=== PATIENT | female | born 1990 | race Caucasian/White ===

== ENCOUNTER 2020-11-25 08:07 | Emergency (ER) | payer MEDICAID, SELFPAY ==
[2020-11-25 08:22] VITALS: BP 117/78; PULSE 89; RESP 18; TEMP 36.9; O2SAT 98; BMI 23.1
--- NOTE | 2020-11-25 08:24 | XR_ITS ---
WS: [id number] Right foot, 3 views, 11/25/2020 Clinical Data: trauma/pain Comparison: None. Findings: There is a fracture of the base of the right third metatarsal with lateral displacement. There may be a fracture of the medial base of the right second metatarsal. The phalanges are intact. The tarsal bones are normal. There is minimal widening of the Lisfranc joint. XR/XR foot RT min 3V* 34790 Impression: 1. Fracture of the base of the right third metatarsal. 2. Probable fracture of base of right second metatarsal with widening of the Li sfranc joint.
--- NOTE | 2020-11-25 08:25 | ED_ITS ---
HPI - Extremity Injury (Lower) General: Chief Complaint: Fall Stated Complaint: R ankle injury post fall Time Seen by Provider: 11/25/20 08:10 Source: patient Mode of arrival: wheelchair Limitations: no limitations History of Present Illness: HPI Narrative: Patient is a 29-year-old female who presents to ED today for evaluation of a right foot injury that she sustained after she was walking down a flight of stairs this morning and missed a few stairs and twisted her foot. She has no other injuries or complaints at this time. Patient states she is not able to bear weight on the extremity secondary to pain. MD complaint: foot injury Onset (ago): hour(s) Injury: Right: foot Place: home Severity: severe Relieving factors: immobilization Exacerbating factors: weight bearing, movement and palpation Context: fall Associated symptoms: Reports inability to bear weight Other symptoms: none Review of Systems Card: Denies: chest pain Resp: Denies: dyspnea Musc: Reports: extremity pain (R foot) and extremity swelling (R foot); Denies: neck pain, back pain, joint pain or joint swelling Neuro: Denies: numbness in extremities or sensory changes Physical Exam Const: COMMON NORMALS: no acute distress, average body habitus, patient oriented x3, no limitations, healthy appearing, alert and well nourished GENERAL APPEARANCE: cooperative HENMT: COMMON NORMALS: normocephalic and atraumatic HEAD & SCALP: normocephalic and atraumatic Neck/C-Spine: COMMON NORMALS: full ROM CERVICAL SPINE: Yes cervical ROM normal and No Cervical spine tenderness Back/Pelvis: COMMON NORMALS: thoracic and lumbar spine normal to inspection and no thoracic nor lumbar tenderness Extremity: GENERAL: Yes normal exam except as noted RIGHT LOWER EXTREMITY: Yes foot & digits (TTP/swelling/ecchymosis noted to dorsal/lateral foot) Right foot and digits: Yes neurovascular exam (normal) and Yes other (maximum tenderness to dorsal mid foot) Neuro: COMMON NORMALS: patient oriented x3, moves all extremities, no focal motor deficits and no sensory deficits noted SENSORIUM/ORIENTATION: Yes alert Course Consultations: Consultation #1: Dr. Marcano-recommends splint/crutches and will see in office early next week with plan for surgery later that week Vital Signs: Vital signs: Vital Signs Temperature 98.5 F 11/25/20 08:22 Pulse Rate 89 11/25/20 08:22 Respiratory Rate 18 11/25/20 09:26 Blood Pressure 117/78 11/25/20 08:22 Pulse Oximetry 98 11/25/20 09:26 MDM - Extremity Injury (Lower) MDM Narrative: Medical decision making narrative: Patient has fairly significant displacement at the base of her third metatarsal. She has a probable fracture to the base of her second metatarsal. Radiologist commented on a possible Lisfranc injury. I spoken to Dr. Marcano who has viewed patient's XRs. Recommend splint and non-weightbearing. Plan will be to see Dr. Marcano in office early next week with plan for surgery later that week. Imaging Data^: XR R foot: My impression: displaced fx base of 3rd metatarsal; AP view shows questionable fx at base of 2nd metatarsal Radiologist's impression: [address] [place] [address] XRay Report Signed Patient: Salud Marcano Unit #: [id number] : [id number] Age/Sex: 29 / F ADM Date: 11/25/20 Loc: ER Room/Bed: Attending Dr: Ordering Provider/Ordering MD: Josseline Brower Date of Service: 11/25/20 Procedure(s): XR foot RT min 3V* 08860 Accession Number(s): [id number] Report Number: [id number] WS: [id number] Right foot, 3 views, 11/25/2020 Clinical Data: trauma/pain Comparison: None. Findings: There is a fracture of the base of the right third metatarsal with lateral displacement. There may be a fracture of the medial base of the right second metatarsal. The phalanges are intact. The tarsal bones are normal. There is minimal widening of the Lisfranc joint. XR/XR foot RT min 3V* 73147 Impression: 1. Fracture of the base of the right third metatarsal. 2. Probable fracture of base of right second metatarsal with widening of the Lisfranc joint. Dictated By: Christy Ruelas MD Signed By: Christy Ruelas MD Signed Date/Time: 11/25/20841 DD/ 9 Discharge Plan Discharge Patient Disposition: Home Clinical Impression: Closed fracture of third metatarsal bone Qualifiers: Encounter type: initial encounter Fracture alignment: displaced Laterality: right Qualified Code(s): S92.331A - Displaced fracture of third metatarsal bone, right foot, initial encounter for closed fracture Closed fracture of 2nd metatarsal Qualifiers: Encounter type: initial encounter Fracture alignment: nondisplaced Laterality: right Qualified Code(s): S92.324A - Nondisplaced fracture of second metatarsal bone, right foot, initial encounter for closed fracture Condition: Stable Prescriptions: New hydrocodone-acetaminophen 5-325 mg tablet 1 tab PO Q4H PRN (Reason: pain) Qty: 20 RF: 0 Discharge Orders: Discharge ED (Routine); Ordered 11/25/20 Ordered By: Josseline Brower Referrals: Reuben Marcano DPM [Physician] - Patient Instructions: Fractures - Metatarsal, Foot Fracture in Adults (ED), Opioid Safety Activity Restrictions/Additional Instructions: [facility] is committed to fighting the nationwide opiate epidemic. We are providing ALL patients with information regarding opiate safety. If you received opiate pain medication during your stay or if you received a prescription for opiate pain medication-please review this handout. If not, you may disregard. Thank you. No weight bearing on extremity. As we discussed we will get you set up to see Dr. Marcano/podiatry early next week with a plan for surgery later that week. Continue to ice and elevate the extremity. Coding Level of Care Code ED Slumber Room Attendant for Reina Fwd Exam Detailed
[2020-11-25 09:26] VITALS: RESP 18; O2SAT 98
[2020-11-25] MEDS: morphine 4 mg/mL SDV 1 mL IM (09:26)
[2020-11-25 11:33] VITALS: PULSE 74; RESP 16; O2SAT 98
--- NOTE | 2020-11-27 22:35 | PC.NURSE ---
called about excessive swelling in her foot. advised to keep elevated and iced. pt states she has been doing that. advised that if she felt like she needed to be seen again she was more than welcome to return to ED.
--- NOTE | 2020-12-02 14:25 | DCPLANNER ---
newspaper library manager had message to schedule a follow up appointment for patient. Referral was made to ortho, patient had an appointment scheduled for 12.01.20 - patient did attend appointment.
== END 2020-11-25 09:49 | disposition home or self-care (01) ==
PROVIDERS: Emergency Provider Physician Assistant
DX: S92.331A Displaced fracture of third metatarsal bone, right foot, initial encounter for closed fracture (principal); S92.324A Nondisplaced fracture of second metatarsal bone, right foot, initial encounter for closed fracture; X50.1XXA Overexertion from prolonged static or awkward postures, initial encounter
CPT/HCPCS: 29515; 73630; 96372; 99283; J2270

== ENCOUNTER → 2020-12-01 16:12 | Outpatient (BNVA) | payer MEDICAID, SELFPAY | PROVIDERS: Referring Provider Physician Assistant; Visit Provider Podiatrist Foot & Ankle Surgery | DX: M79.673 Pain in unspecified foot (principal); S92.331D Displaced fracture of third metatarsal bone, right foot, subsequent encounter for fracture with routine healing; X58.XXXD Exposure to other specified factors, subsequent encounter | CPT/HCPCS: 73630 ==

== ENCOUNTER 2020-12-01 16:35 | Outpatient (CLI) | payer MEDICAID, SELFPAY | END 2020-12-01 16:36 | disposition home or self-care (01) | LOC: SPT 16:37 | PROVIDERS: Visit Provider Podiatrist Foot & Ankle Surgery | DX: Z46.89 Encounter for fitting and adjustment of other specified devices (principal); S93.321D Subluxation of tarsometatarsal joint of right foot, subsequent encounter; X58.XXXD Exposure to other specified factors, subsequent encounter | CPT/HCPCS: 97760; L4361 ==

== ENCOUNTER → 2020-12-05 15:14 | Outpatient (BNVA) | payer MEDICAID, SELFPAY | PROVIDERS: Visit Provider Podiatrist Foot & Ankle Surgery | DX: Z01.818 Encounter for other preprocedural examination (principal); Z20.822 Contact with and (suspected) exposure to COVID-19 | CPT/HCPCS: 87635 ==

== ENCOUNTER 2020-12-08 13:18 | Outpatient (CLI) | payer MEDICAID, SELFPAY ==
--- NOTE | 2020-12-08 13:37 | CT_ITS ---
WS: [id number] Noncontrast CT RIGHT FOOT TECHNIQUE: Noncontrast CT right foot with coronal and sagittal reformatted images. CLINICAL INFORMATION: Lisfranc fracture of right foot COMPARISON: December 01, 2020 DLP: 956.[address] scans at [facility] use at least one of these dose optimization techniques: automated e xposure control; mA and/or kV adjustment per patient size (includes targeted exams where dose is matc hed to clinical indication); or iterative reconstruction. FINDINGS: First metatarsal normal in appearance. Dorsal soft tissue edema. Lisfranc type fracture with comminut ed transverse fractures involving the base of the second and third metatarsals. Lateral displacement of the third metatarsal measuring 6 mm. Slight lateral displacement of the second metatarsal in relat ion to the second cuneiform measuring 2 mm. Fourth and fifth metatarsals are normal in appearance. Small displaced fracture fragments along the lateral base of the third cuneiform and lateral cuboid. Additional tiny avulsions involving the plantar surface first and second cuneiforms. Normal tibiotalar joint. Normal talus. Normal calcaneus. CT/CT foot RT wo con* [id number] IMPRESSION: 1. Lisfranc type fracture deformity with comminuted fractures involving the ba se of the second and third metatarsals with intra-articular extension. 2. Lateral displacement of the third metatarsal measuring 6 mm. Slight lateral displacement of the second metatarsal in relation to the second cuneiforms bob suring 2 mm. 3. Additional small avulsion fractures involving the first second and third cu neiforms and lateral cuboid.
== END 2020-12-08 13:19 | disposition home or self-care (01) ==
PROVIDERS: Visit Provider Podiatrist Foot & Ankle Surgery
DX: S92.811A Other fracture of right foot, initial encounter for closed fracture (principal); S92.221A Displaced fracture of lateral cuneiform of right foot, initial encounter for closed fracture; S92.211A Displaced fracture of cuboid bone of right foot, initial encounter for closed fracture; X58.XXXA Exposure to other specified factors, initial encounter
CPT/HCPCS: 73700

== ENCOUNTER 2020-12-09 07:33 | Day surgery (SDC) | payer MEDICAID, SELFPAY ==
[2020-12-08 16:54] VITALS: BMI 23.1
[2020-12-09] VITALS (10 sets, daily range): BP systolic 116–135; BP diastolic 70–95; PULSE 87–104; RESP 12–20; TEMP 36.3–36.9; O2SAT 94–100
[2020-12-09] MEDS: sodium chloride 0.9% 1,000 ML 30 ML IV (08:21)
--- NOTE | 2020-12-09 08:47 | ANES.PREANE2 ---
Pre-Anesthetic Assessment Pre-Anesthetic Assessment: Height/Weight: Height 1.73 m Weight 68.946 kg Temp Pulse Resp BP Pulse Ox 97.4 F L 87 17 131/70 99 12/09/20 07:45 12/09/20 07:45 12/09/20 07:45 12/09/20 07:45 12/09/20 07:45 Preop Diagnosis: Lisfranc fracture dislocation right foot Proposed Procedure: Operation Date: 12/09/20 09:25 Proposed Procedures p Open reduction internal fixation tarsometatarsal joint dislocation and open reduction internal fixation metatarsal fractures all right foot 03633 76572 S92.314A(Right) - TORY BurrM Was Beta Luisa taken within 24 hours: N/A Was Clonidine taken within 24 hours: N/A Last intake: Intake Last Liquid Date 12/08/20 Last Liquid Time 19:30 Last Solid Date 12/08/20 Last Solid Time 19:00 Social: Social History: Tobacco and No alcohol Exam: Pre-Anes Outpt Exam: alert, oriented x 3 and regular rate & rhythm Airway: Submandibular: WNL Cervical ROM: WNL MP: 2 Dentition: Full Pulmonary: Pulmonary: Asthma and COPD Neuropsych: Neuropsych: Depression and Neuropathy Anesthetic Plan: ASA status: 2 Anesthesia: General Risk of > 500 ml blood loss (7ml/kg in children): No Meds/Allergies Current Medications: Current Medications Generic Name Dose Route Start Last Admin Trade Name Freq PRN Reason Stop Dose Admin Sodium Chloride 1,000 mls @ 30 ml s/hr 12/09/20 07:45 12/09/20 08:21 Sodium Chloride 0.9% IV 12/10/20 07:44 30 mls/hr .Q24H AGA Administration PFSH Anesthesia PFSH: Social History Smoking and tobacco status: current every day smoker Female Reproductive History: Date of last menstrual period: 12/08/20 Data Anesthesia Cardiac Studies: No Data to Display
--- NOTE | 2020-12-09 10:30 | W.PM.OPSUD ---
Surgery/Procedure H&P Update DATE OF PROCEDURE: December 09, 2020 DATE H&P PERFORMED: 12/01/20 H&P UPDATE INFORMATION: I have reviewed H&P completed within last 30 days, I have examined patient prior to procedure, No changes to prior documentation and H&P is in [facility] EMR on date indicated PREOP DIAGNOSIS: Lisfranc fracture dislocation right foot PLANNED PROCEDURE: Operation Date: 12/09/20 09:25 Proposed Procedures p Open reduction internal fixation tarsometatarsal joint dislocation and open reduction internal fixation metatarsal fractures all right foot [id number] S92.314A(Right) - Rueben Marcano DPM
[2020-12-09 10:56] LABS: OR HCG Qualitative Urine Negative (Negative)
[2020-12-09] MEDS: clindamycin 600 MG/50 ML PREMIX 100 MG IV (10:56)
[2020-12-09] MEDS: lidocaine 1% INJ 20 mL XX (11:30)
--- NOTE | 2020-12-09 12:08 | P.PCN_ITS ---
Documented by User: Barry Brush CRNA 12/09/20 12:10 PACU note PACU note: VSS, Good respiratory effort, report to OBJECT ORIENTED PROGRAMMER Post-Anesthesia Exam: awake
[2020-12-09] MEDS: fentaNYL 50 mcg/mL INJ 2mL IVP (12:10)
--- NOTE | 2020-12-09 12:12 | XR_ITS ---
WS: [id number] XR foot RT 2V 66573 REASON FOR EXAM: post op FINDINGS: Complex fractures of the proximal metatarsals of the third through the fourth toes of the right foot along the Lisfranc joint. Subsequent fixation by multiple long pins through the metatarsals terminati ng in the tarsal bones. Fracture fragments, joint alignment, and surgical appliances appear appropriate. XR/XR foot RT 2V 68524 IMPRESSION: Postoperative right foot as above.
--- NOTE | 2020-12-09 12:14 | P.OP_ITS ---
Operative Report Date of procedure: December 09, 2020 Pre-op Diagnosis: Lisfranc fracture dislocation right foot Post-op diagnosis: same Post-op Findings: None Procedure Done: Open reduction internal fixation tarsometatarsal joint dislocation and open reduction internal fixation metatarsal fracture of the third all right foot. CPT codes 94682 and 39062 Implants: 0.062 K wire x7, 4-0 Vicryl, 4-0 nylon Specimens removed/disposition: None Pathology: none sent Surgeon: Reuben Marcano D.P.M. Print Line Supervisor: Aldo Anesthesia: General Estimated blood loss: Less than 5 mL Tourniquet time: 40 minutes IV fluids: None Urine output: None Complications: None Findings: Displaced right third metatarsal, instability/dislocation of the tarsometatarsal joints 1, 2, 3, 4 and 5 right foot. Condition: stable Disposition: PACU Brief History: Patient fell injuring her right foot. CT scan and x-ray shows fractures of the second and third metatarsals of the right foot. She has an avulsion fracture at the first metatarsal medial cuneiform base. Recommended open reduction internal fixation. Plan a will be K wire fixation plan be will be plates and screws. Patient is agreeable wishes to proceed. Has been n.p.o. since midnight, and fluid consent signed, Covid screening negative, no guarantees written, expressed or implied. Patient wishes to proceed. Procedure: Under mild sedation the patient was brought to the operativeRoom and placed on the operative table in supine position. A timeout was performed. Anesthesia was then administered by the anesthesia service. Local anesthesia injected by myself consisting of one-to-one mixture 1% lidocaine 0.5% Marcaine plain and a right ankle block fashion total of 30 cc utilized. Well-padded pneumatic tourniquet applied to the right ankle. Right lower extremity was then scrubbed, prepped and draped utilizing normal aseptic technique. Right foot was wrapped with an Esmarch bandage and the tourniquet inflated to 250 mmHg. Attention was directed to the third metatarsal which was the greatest displaced fracture dislocation on the right foot. Linear longitudinal incision was made at the third metatarsal base with dissection carried down to periosteum utilizing blunt and sharp technique. Care was taken to retract and preserve neurovascular and tendinous structures. All bleeders were ligated and cauterized as necessary. Third metatarsal was reduced and fixated with a K wire across the tarsometatarsal joint. Second metatarsal was then reduced a natomically into an improved position and fixated with crossing 0.062 K wires, first tarsometatarsal joint also noted to have instability intraoperatively under fluoroscopy and this was fixated utilizing crossing K wires followed by K wires in the fourth and fifth metatarsals. Incision was flushed with saline solution and closed with subcutaneous tissue reapproximated with 4-0 Vicryl and skin with 4-0 nylon. Incision site was then dressed with Adaptic, sterile 4 x 4, Kerlix and multilayer compressive posterior splint. Tourniquet was deflated and a prompt hyperemic response is noted to the distal digits of the right foot. Patient tolerated the procedure and anesthesia well and was transferred to the PACU with vital signs stable and vascular status intact. Following a period of postop monitoring she will be discharged home has instructions to be remain strict nonweightbearing and elevate her right foot. She is given at home instructions and follow-up as well as my phone number to contact me with any questions or concerns.
[2020-12-09] MEDS: oxyCODONE-APAP 10-325 mg Tablet 1 TAB PO (12:47)
[2020-12-09] MEDS: HYDROmorphone 1 mg/mL INJ 1 mL IVP (12:49)
--- NOTE | 2020-12-09 13:37 | ANE.PACU2 ---
Inpatient post-anesthesia follow up: Airway intact: Yes Vital signs: Temperature 98.1 F Pulse Rate 94 Respiratory Rate 17 Blood Pressure 135/83 Pulse Oximetry 100 Oxygen Delivery Me thod Room Air Oxygen Flow Rate Fraction of Inspir ed Oxygen Hydration adequate: Yes Nausea and vomiting: No Pain level: 4 Mental status: Baseline
== END 2020-12-09 13:20 | disposition home or self-care (01) ==
PROVIDERS: Anesthesiology; Visit Provider Podiatrist Foot & Ankle Surgery
PROC: (CPT 28485; principal; 2020-12-09 09:15)
DX: S92.331A Displaced fracture of third metatarsal bone, right foot, initial encounter for closed fracture (principal); W10.9XXA Fall (on) (from) unspecified stairs and steps, initial encounter; J44.9 Chronic obstructive pulmonary disease, unspecified; F32.9 Major depressive disorder, single episode, unspecified; F17.210 Nicotine dependence, cigarettes, uncomplicated
CPT/HCPCS: 28485; 28615; 73620; 84703; 96365; C1713; J1100; J1170; J1885; J2405; J2704; J3010; J3490; J7030

== ENCOUNTER → 2020-12-16 09:07 | Outpatient (BNVA) | payer MEDICAID, SELFPAY | PROVIDERS: Visit Provider Podiatrist Foot & Ankle Surgery | DX: S92.314A Nondisplaced fracture of first metatarsal bone, right foot, initial encounter for closed fracture (principal); X58.XXXA Exposure to other specified factors, initial encounter; Z98.890 Other specified postprocedural states | CPT/HCPCS: 73630 ==

== ENCOUNTER 2020-12-17 11:24 | Emergency (ER) | payer MEDICAID, SELFPAY ==
[2020-12-17 11:35] VITALS: BP 122/73; PULSE 105; RESP 18; TEMP 36.8; O2SAT 99; BMI 23.1
--- NOTE | 2020-12-17 11:46 | USR_ITS ---
PROCEDURE INFORMATION: Exam: US Duplex Right Lower Extremity Veins, Limited Exam date and time: 12/17/2020 11:46 AM Age: 29 years old Clinical indication: Pain; Swelling (edema) of limb; Lower extremity, right; Leg, lower; Patient HX: Recent right foot surgery 8 days ago; Additional info: Calf pain/swelling; Recent surgery TECHNIQUE: Imaging protocol: Real-time Duplex ultrasound of the Right Lower Extremity with 2-D bruno scale, color Doppler flow and spectral waveform analysis with image documentation. Limited exam was focused on the right lower extremity veins. COMPARISON: CT foot RT wo con* [id number] 12/08/2020 1:46 PM FINDINGS: Right deep veins: There is acute occlusive deep venous thrombosis in the popliteal artery which extends distally into the peroneal artery. Above the knee the veins are patent. Right superficial veins: Unremarkable. Saphenofemoral junction is patent without thrombus. Soft tissues: Unremarkable. US/[place] [id number] IMPRESSION: Acute deep venous thrombosis involving the right popliteal artery extending distally into the peroneal artery.
[2020-12-17 19:20] VITALS: BP 125/81; PULSE 103; RESP 22; O2SAT 97
--- NOTE | 2020-12-17 19:20 | PC.NURSE ---
Dr. Bowden in room for exam.
[2020-12-17 19:39] VITALS: RESP 18
[2020-12-17] MEDS: morphine 4 mg/mL SDV 1 mL IVP (19:39)
[2020-12-17] MEDS: ondansetron 2 mg/ML SDV 2 mL 4 MG IVP (19:39)
[2020-12-17] MEDS: enoxaparin 80 mg/0.8 mL Syringe 70 MG SUBCUT (19:41)
[2020-12-17 19:44] VITALS: BP 121/78; PULSE 92; RESP 22; O2SAT 100
[2020-12-17 19:47] LABS: Basophils # 0.1 10^3/uL (0.0-0.1); Basophils % 0.6 %; Eosinophils # 0.3 10^3/uL (0.0-0.8); Eosinophils % 2.1 %; Hematocrit 36.1 % (37.0-47.0); Hemoglobin 11.2 g/dL (11.5-15.3); Lymphocytes # 3.8 10^3/uL (0.8-4.8); Lymphocytes % 30.7 %; Mean Corpuscular Hemoglobin 26.2 pg (28.0-34.0); Mean Corpuscular Volume 84.5 fl (81-99); Mean Platelet Volume 10.7 fL (7.4-10.4); Monocytes % 8.2 %; Neutrophils # 7.14 10^3/uL (1.8-7.7); Neutrophils % 57.8 %; Nucleated Red Blood Cells % 0 %; Platelet Count 462 10^3/cmm (130-400); Red Blood Count 4.27 10^6/uL (4.1-5.3); Red Cell Distribution Width 15.1 % (12.1-15.1); White Blood Count 12.3 10^3/uL (4.0-10.0)
[2020-12-17 19:55] LABS: INR 0.96 (0.8-1.2); Partial Thromboplastin Time 27.5 SECONDS (23.9-36.7)
[2020-12-17 20:01] LABS: Alanine Aminotransferase < 5 U/L (0-33); Albumin Level 3.9 g/dL (3.5-5.2); Alkaline Phosphatase 99 IU/L (35-105); Anion Gap 15.9 (5-19); Aspartate Amino Transferase 11 U/L (0-32); Blood Urea Nitrogen 7 mg/dL (6-20); Calcium 10.8 mg/dL (8.5-10.5); Carbon Dioxide 24 mmol/L (22-29); Chloride 103 mmol/L (98-107); Globulin 3.7 g/dL (1.3-4.6); Glomerular Filtration Rate 143.9 mL/min (90-130); Glucose 85 mg/dL (65-115); HCG, Serum Qual Negative (Negative); Osmolality Calculated 285 mOsm/kg (285-295); Potassium 3.9 mmol/L (3.5-5.1); Sodium 139 mmol/L (136-145); Total Bilirubin 0.2 mg/dL (0.15-1.2); Total Protein 7.6 g/dL (6.6-8.7)
[2020-12-17 20:16] VITALS: BP 130/83; PULSE 92; RESP 22; O2SAT 98
[2020-12-17 20:45] VITALS: BP 120/84; PULSE 95; RESP 18; O2SAT 98
--- NOTE | 2020-12-18 00:31 | W.ED.EXTPRO ---
HPI - Extremity Problem General: Chief complaint: Extremity Problem,Nontraumatic Stated complaint: SWELLING IN RIGHT FOOT RECENT SURGERY Time Seen by Provider: 12/17/20 18:59 History of Present Illness: HPI Narrative: 29-year-old female with a recent history of surgery for reduction and fixation of the Lisfranc fracture of her right foot 8 days ago. She presents with increasing swelling and pain to her right lower extremity, from the knee to the calf mainly. No fever. There is warmth. There is no redness or bruising. MD Complaint: extremity pain and extremity swelling Onset (ago): day(s) (3) Pain Consistency: constant Location: right and lower extremity Quality: burning and aching Radiation: none Relieving factors: elevation Exacerbating factors: palpation Associated symptoms: Deny arthralgias, chest pain, fever(s), rash or short of breath Review of Systems Const: Denies: fever(s) Card: Denies: chest pain Skin/Breast: Denies: rash PFS ED PFSH: Social History Smoking and tobacco status: current every day smoker Female Reproductive History: Date of last menstrual period: 12/08/20 Physical Exam Const: COMMON NORMALS: no acute distress, patient oriented x3 and alert Chest: COMMONS NORMALS: normal inspection of the chest Resp: COMMON NORMALS: normal respiratory effort, No use of accessory muscles and clear to auscultation bilaterally AUSCULTATION: clear to auscultation bilaterally Cardio: COMMON NORMALS: regular rate and regular rhythm RATE: regular rate RHYTHM: regular rhythm Neuro: COMMON NORMALS: patient oriented x3 SENSORIUM/ORIENTATION: Yes alert Course Vital Signs: Vital signs: Vital Signs Temperature 98.3 F 12/17/20 11:35 Pulse Rate 95 12/17/20 20:45 Respiratory Rate 18 12/17/20 20:45 Blood Pressure 120/84 12/17/20 20:45 Pulse Oximetry 98 12/17/20 20:45 MDM - Extremity (Nontraumatic) MDM Narrative: Medical decision making narrative: Heart rate is below 100. Oxygen saturations are 9899% on room air. Hemoglobin 11.2. White blood cell count is 12.3. Ultrasound reveals a popliteal DVT. She is given an injection of Lovenox here, will be loaded and maintained on Eliquis for DVT treatment. She will follow-up both with her surgeon, and her PCP. Lab Data: Labs: Lab Results 12/17/20 12/17/20 12/17/20 19:11 19:11 19:11 WBC 12.3 10^3/uL H 10 ^3/uL (4.0-10.0) RBC 4.27 10^6/uL 10^6 /uL (4.1-5.3) Hgb 11.2 g/dL L g/dL (11.5-15.3) Hct 36.1 % L % (37.0-47.0) MCV 84.5 fl fl (81-99) MCH 26.2 pg L pg (28.0-34.0) MCHC 31.0 g/dL g/dL (30.0-36.0) RDW 15.1 % % (12.1-15.1) Plt Count 462 10^3/cmm H 10 ^3/cmm (130-400) MPV 10.7 fL H fL (7.4-10.4) Neut % (Auto) 57.8 % % Lymph % (Auto) 30.7 % % [place] % (Auto) 8.2 % % Eos % (Auto) 2.1 % % Baso % (Auto) 0.6 % % Neut # (Auto) 7.14 10^3/uL 10^3 /uL (1.8-7.7) Lymph # (Auto) 3.8 10^3/uL 10^3/ uL (0.8-4.8) [place] # (Auto) 1.0 10^3/uL H 10^ 3/uL (0.2-0.9) Eos # (Auto) 0.3 10^3/uL 10^3/ uL (0.0-0.8) Baso # (Auto) 0.1 10^3/uL 10^3/ uL (0.0-0.1) Nucleated RBC % (a uto) 0 % % Nucleated RBCs # 0.0 /100WBC /100W BC PT 13.00 SECONDS SEC ONDS (12.1-14.9) INR 0.96 (0.8-1.2) APTT 27.5 SECONDS SECO NDS (23.9-36.7) Sodium 139 mmol/L mmol/L (136-145) Potassium 3.9 mmol/L mmol/L (3.5-5.1) Chloride 103 mmol/L mmol/L (98-107) Carbon Dioxide 24 mmol/L mmol/L (22-29) Anion Gap 15.9 (5-19) BUN 7 mg/dL mg/dL (6-20) Creatinine 0.5 mg/dL mg/dL (0.5-0.9) GFR Calculation 143.9 mL/min H mL /min (90-130) Glucose 85 mg/dL mg/dL (65-115) Calculated Osmolal ity 285 mOsm/kg mOsm/ kg (285-295) Calcium 10.8 mg/dL H mg/d L (8.5-10.5) Total Bilirubin 0.2 mg/dL mg/dL (0.15-1.2) AST 11 U/L U/L (0-32) ALT < 5 U/L U/L (0-33) Alkaline Phosphata se 99 IU/L IU/L (35-105) Total Protein 7.6 g/dL g/dL (6.6-8.7) Albumin 3.9 g/dL g/dL (3.5-5.2) Globulin 3.7 g/dL g/dL (1.3-4.6) HCG, Qual 12/17/20 19:11 WBC RBC Hgb Hct MCV MCH MCHC RDW Plt Count MPV Neut % (Auto) Lymph % (Auto) [place] % (Auto) Eos % (Auto) Baso % (Auto) Neut # (Auto) Lymph # (Auto) [place] # (Auto) Eos # (Auto) Baso # (Auto) Nucleated RBC % (a uto) Nucleated RBCs # PT INR APTT Sodium Potassium Chloride Carbon Dioxide Anion Gap BUN Creatinine GFR Calculation Glucose Calculated Osmolal ity Calcium Total Bilirubin AST ALT Alkaline Phosphata se Total Protein Albumin Globulin HCG, Qual Negative (Negative) Discharge Plan Discharge Patient Disposition: Home Clinical Impression: Deep vein thrombosis of lower extremity Qualifiers: Affected thrombotic vein of extremity: popliteal Chronicity: acute Laterality: right Qualified Code(s): I82.431 - Acute embolism and thrombosis of right popliteal vein Condition: Stable Prescriptions: New Eliquis 5 mg tablet 5 mg PO Q12H Qty: 70 RF: 0 No Action (DME) Cam Boot to the right See Rx Instructions .Route .MEDSUPPLY Qty: 1 RF: 0 oxycodone-acetaminophen [Percocet] 7.5-325 mg tablet 1 tab PO Q6H PRN (Reason: pain) 7 Days Qty: 28 RF: 0 duloxetine 60 mg Capsule,Delayed Release(Dr/Ec) 90 mg PO DAILY RF: 0 gabapentin 600 mg Tablet 600 mg PO TID RF: 0 Sprintec (28) tablet 1 tab PO DAILY RF: 0 Discharge Orders: Discharge ED (Routine); Ordered 12/17/20 Ordered By: Gurvinder Bowden Discharge Diet: Advance as tolerated Discharge Activity: Limit activity as instructed Patient Instructions: Deep Venous Thrombosis (ED) Activity Restrictions/Additional Instructions: Call your orthopedic surgeon Saturday morning to let them know you were diagnosed with a DVT. They may have special instructions for you fracture care [place]. Otherwise, medication as directed. Return for any worsening chest discomfort, shortness of breath, any other concerning symptoms. Coding Level of Care Code ED Video Editing Internship for Reina Lopez
== END 2020-12-17 20:48 | disposition home or self-care (01) ==
PROVIDERS: Physician Assistant; Emergency Provider Emergency Medicine
DX: I82.431 Acute embolism and thrombosis of right popliteal vein (principal); F17.210 Nicotine dependence, cigarettes, uncomplicated
CPT/HCPCS: 80053; 84703; 85025; 85610; 85730; 93971; 96372; 96374; 96375; 99284; J1650; J2270; J2405

== ENCOUNTER → 2020-12-29 15:49 | Outpatient (BNVA) | payer MEDICAID, SELFPAY | PROVIDERS: Visit Provider Podiatrist Foot & Ankle Surgery | DX: Z98.890 Other specified postprocedural states (principal); Z98.1 Arthrodesis status | CPT/HCPCS: 73630 ==

== ENCOUNTER → 2021-01-12 09:09 | Outpatient (BNVA) | payer MEDICAID, SELFPAY | PROVIDERS: Visit Provider Podiatrist Foot & Ankle Surgery | DX: S92.334A Nondisplaced fracture of third metatarsal bone, right foot, initial encounter for closed fracture (principal); S92.314A Nondisplaced fracture of first metatarsal bone, right foot, initial encounter for closed fracture; X58.XXXA Exposure to other specified factors, initial encounter | CPT/HCPCS: 73630 ==

== ENCOUNTER → 2021-03-20 10:43 | Outpatient (BNVA) | payer MEDICAID, SELFPAY | PROVIDERS: Visit Provider Podiatrist Foot & Ankle Surgery | DX: Z98.890 Other specified postprocedural states (principal) | CPT/HCPCS: 73630 ==